=== PATIENT | female | born 1955 | race Caucasian/White ===

== ENCOUNTER 2021-02-20 14:31 | Inpatient (IN) | payer MEDICARE ==
[~2021-02-20] VITALS: Ht 165.1 cm; Wt 54.9 kg
[2021-02-20] MEDS ORDERED: SODIUM CHLORIDE FLUSH 10ML SYR IVF ONE (15:30)
[2021-02-20] MEDS ORDERED: HEPARIN 5,000 UNITS/ML, 1ML IV PRN (16:00)
[2021-02-20] MEDS ORDERED: HEPARIN 5,000 UNITS/ML, 1ML IV ONE (16:00)
[2021-02-20] MEDS ORDERED: HEPARIN 25,000 UNITS/250ML PMX 250 ML IV PRN (16:00)
[2021-02-20] MEDS ORDERED: SODIUM CHLORIDE FLUSH 10ML SYR IVF PRN (16:00)
--- NOTE | 2021-02-20 16:29 | NUR ---
md madison at bedside for cardiology consult
--- NOTE | 2021-02-20 16:32 | NUR ---
pt a&o, resps even and unlabored, nsr on cardiac montior with no ectopy. pt denies chest pain, denies chest pressure. pt updated with poc to be admitted to cardiac telemetry with cardiac cath tomorrow am.
[2021-02-20] MEDS ORDERED: HEPARIN 5,000 UNITS/ML, 1ML ONE (16:40)
[2021-02-20] MEDS ORDERED: HEPARIN 25,000 UNITS/250ML PMX 250 ML ONE (16:40)
--- NOTE | 2021-02-20 17:08 | NUR ---
heparin gtt infusing via IV pump, pt a&o, resps even and unlabored, nadn. notes chest pressure level 1/10. all monitors remain in place, nsr on cafeteria monitor with no ectopy. at bedside.
[2021-02-20] MEDS ORDERED: NITROGLYCERIN 0.4 MG BOTTLE (25 TABS) SL PRN ×2 (17:30→22:00)
[2021-02-20] MEDS ORDERED: morphine SULFATE 10 MG/ML, 1ML IVPush PRN (17:30)
--- NOTE | 2021-02-20 18:39 | NUR ---
PT ASSISTED TO VOID, BACK IN BED, ALL MONITORS ON, NSR ON WAFER CLEANER WITH NO ECTOPY. PT DENIES CHEST PAIN. REPORT CALLED TO RECEIVING RN EDITH, PT TRANSPORTING TO CARDIAC TELE AT THIS TIME.
--- NOTE | 2021-02-20 18:41 | NUR ---
RECEIVING RN EDITH STRINGER PT REQUIRING MED REC STILL
[2021-02-20 20:12] VITALS: BP 125/96
[2021-02-20] MEDS: ATORVASTATIN 80 MG TABLET PO SCH (20:30)
[2021-02-20] MEDS ORDERED: NITROGLYCERIN 0.4 MG/SPRAY SL PRN (22:00)
[2021-02-20 22:25] VITALS: BP 117/74
[2021-02-20 22:37] VITALS: BP 111/73
[2021-02-21 01:06] VITALS: BP 103/72
[2021-02-21 05:03] LABS: BASOPHILS % (AUTO) 1 % (0-1); EOSINOPHILS % (AUTO) 1 % (1-7); LYMPHOCYTES % (AUTO) 34 % (22-44); MEAN CORPUSCULAR HEMOGLOBIN 30.6 pg (27.0-34.8); MEAN CORPUSCULAR HGB CONC 33.5 g/dL (32.4-35.8); MEAN PLATELET VOLUME 9.6 fL (7.4-10.4); MONOCYTES % (AUTO) 7 % (2-9); NEUTROPHILS % (AUTO) 57 % (42-75); PLATELET COUNT 202 x10^3/uL (130-400); RED BLOOD COUNT 4.66 x10^6/uL (3.82-5.3); RED CELL DISTRIBUTION WIDTH 12.9 % (9.6-15.2)
[2021-02-21 05:17] LABS: CHLORIDE 112 mmol/L (98-107)
[2021-02-21 05:29] LABS: ANION GAP 7 mmol/L (5-15); CALCIUM 8.4 mg/dL (8.5-10.1); CHOLESTEROL, TOTAL 147 mg/dL (140-239); CREATININE 0.56 mg/dL (0.55-1.02); HDL CHOL % 50 % (28-40); HDL CHOLESTEROL (DIRECT) 73 mg/dL (40-60); LDL CHOLESTEROL,CALCULATED 64 mg/dL (54-169); LDL/HDL RATIO 0.9 (0.5-3.0); TRIGLYCERIDES 50 mg/dL (50-200); VLDL CHOLESTEROL 10 mg/dL (0-25)
[2021-02-21 08:00] VITALS: BP 125/84
[2021-02-21] MEDS: ASPIRIN 81 MG TABLET EC PO SCH (08:32)
[2021-02-21] MEDS: LISINOPRIL 5 MG TABLET PO SCH (08:33)
[2021-02-21] MEDS: METOPROLOL SUCCINATE 25 MG TAB.ER.24H PO SCH (08:33)
[2021-02-21] MEDS: SODIUM CHLORIDE 0.9% 1,000 ML IV SCH ×4 (12:56→23:00)
[2021-02-21] MEDS ORDERED: BIVALIRUDIN 250 MG ONE (14:01)
[2021-02-21] MEDS ORDERED: MIDAZOLAM 1 MG/ML, 5ML ONE (14:01)
[2021-02-21] MEDS ORDERED: LIDOCAINE-MPF 1%, 5ML ONE (14:01)
[2021-02-21] MEDS ORDERED: TICAGRELOR 90 MG TABLET ONE (14:01)
[2021-02-21] MEDS ORDERED: FENTANYL PF 100 MCG/2ML ONE (14:01)
[2021-02-21] MEDS ORDERED: VERAPAMIL 2.5 MG/ML, 2ML ONE (14:01)
[2021-02-21 15:10] VITALS: BP 112/72
[2021-02-21 18:49] VITALS: BP 113/73
[2021-02-21] MEDS: ATORVASTATIN 80 MG TABLET PO SCH (20:25)
[2021-02-22 02:22] VITALS: BP 123/81
[2021-02-22 04:26] LABS: ANION GAP 4 mmol/L (5-15); CALCIUM 8.2 mg/dL (8.5-10.1); CHLORIDE 115 mmol/L (98-107); CREATININE 0.53 mg/dL (0.55-1.02)
[2021-02-22] MEDS: ASPIRIN 81 MG TABLET EC PO SCH (05:11)
[2021-02-22] MEDS: SODIUM CHLORIDE 0.9% 1,000 ML IV SCH ×2 (05:12→05:13)
[2021-02-22] MEDS: METOPROLOL SUCCINATE 25 MG TAB.ER.24H PO SCH ×2 (08:00→09:51)
[2021-02-22] MEDS: LISINOPRIL 5 MG TABLET PO SCH (09:00)
[2021-02-22 09:47] VITALS: BP 103/69
[2021-02-22] MEDS ORDERED: LISI5TAB7 PO (13:33)
[2021-02-22] MEDS ORDERED: METO25TA91 PO (13:33)
[2021-02-22] MEDS ORDERED: ASPI81TA45 PO (13:33)
== END 2021-02-22 14:31 | disposition home or self-care (01) | DRG 281 ==
LOC: ED 15:53 → 5SO 19:03
PROVIDERS: ADMIT Internal Medicine; ATTEND Internal Medicine
PROC: 4A023N7 Measurement of Cardiac Sampling and Pressure, Left Heart, Percutaneous Approach (ICD-10-PCS; principal; 2021-02-21)
PROC: B2111ZZ Fluoroscopy of Multiple Coronary Arteries using Low Osmolar Contrast (ICD-10-PCS; 2021-02-21)
PROC: B2151ZZ Fluoroscopy of Left Heart using Low Osmolar Contrast (ICD-10-PCS; 2021-02-21)
DX: I21.4 Non-ST elevation (NSTEMI) myocardial infarction (principal); I51.81 Takotsubo syndrome; M81.0 Age-related osteoporosis without current pathological fracture; I44.7 Left bundle-branch block, unspecified; Z87.891 Personal history of nicotine dependence; Z88.1 Allergy status to other antibiotic agents; Z88.2 Allergy status to sulfonamides
CPT/HCPCS: 36415; 80048; 80061; 83036; 84443; 84484; 85025; 85520; 93005; 93306; 93458; 96374; 99156; 99285; C1769; C1894; G0378; J0583; J1644; J2250; J3010; Q9967